=== PATIENT | male | born 1965 | race Caucasian/White ===

== ENCOUNTER 2018-11-28 17:38 | Emergency (ER) | payer OTHER ==
[~2018-11-28] VITALS: Ht 180.3 cm; Wt 113.0 kg
[2018-11-28 17:42] VITALS: BP 118/74
--- NOTE | 2018-11-28 19:15 | NUR ---
Patient is resting quietly, mid fowlers in bed. 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 Good distal CSM's right leg. Awaiting provides.
[2018-11-28] MEDS ORDERED: ketorolac trometh inj. 60 MG/2 ML VIAL IM ONE (20:15)
[2018-11-28] MEDS ORDERED: acetaminophen 325mg tablet PO ONE (20:15)
== END 2018-11-28 20:45 | disposition home or self-care (01) ==
LOC: ER 17:40
DX: S86.011A Strain of right Achilles tendon, initial encounter (principal); I10 Essential (primary) hypertension; X58.XXXA Exposure to other specified factors, initial encounter; Y93.02 Activity, running; Y92.89 Other specified places as the place of occurrence of the external cause; Y99.8 Other external cause status
CPT/HCPCS: 96372; 99283; J1885